=== PATIENT | female | born 1965 | race Caucasian/White ===

== ENCOUNTER 2017-11-05 12:17 | Observation (INO) | payer MEDICARE ==
[~2017-11-05] VITALS: Ht 147.3 cm; Wt 48.5 kg
[2017-11-05] MEDS ORDERED: 0.9 % SODIUM CHLORIDE 10 ML DISP.SYRIN. IV PRN (12:45)
[2017-11-05 12:57] LABS: BASO % 1 % (0-3); EOS % 0 % (0-3); HEMATOCRIT 44.6 % (36.0-47.0); LYMPH # 1.9 x10^3/uL (1.0-4.8); LYMPH % 23 % (24-48); MEAN CORPUSCULAR HEMOGLOBIN 30 pg (25-35); MEAN CORPUSCULAR HGB CONC 34 g/dL (31-37); MEAN CORPUSCULAR VOLUME 88 fL (79-100); MONO # 0.8 x10^3/uL (0.0-1.1); MONO % 10 % (0-9); NEUT # 5.5 x10^3uL (1.8-7.7); NEUT % 67 % (31-73); PLATELET COUNT 98 x10^3/uL (140-400); RED CELL DISTRIBUTION WIDTH 13.8 % (11.5-14.5); WHITE BLOOD COUNT 8.3 x10^3/uL (4.0-11.0)
[2017-11-05] MEDS ORDERED: ONDANSETRON PF 4 MG/2 ML VIAL. IV ONE (13:00)
[2017-11-05] MEDS ORDERED: IV NORMAL SALINE 1,000ML 1,000 ML IV SCH (13:00)
[2017-11-05 13:12] LABS: ALBUMIN 3.6 g/dL (3.4-5.0); ALBUMIN/GLOBULIN RATIO 1.1 (1.0-1.7); CALCIUM 8.8 mg/dL (8.5-10.1); CREATININE 1.1 mg/dL (0.6-1.0); GFR 52.2; POTASSIUM 4.2 mmol/L (3.5-5.1); TOTAL BILIRUBIN 0.4 mg/dL (0.2-1.0); TOTAL PROTEIN 6.9 g/dL (6.4-8.2)
[2017-11-05] MEDS ORDERED: IOHEXOL 240 MG/ML 50ML VIAL. ONE (14:11)
[2017-11-05] MEDS: IV NORMAL SALINE 1,000ML 1,000 ML IV SCH ×2 (14:15→21:32)
[2017-11-05] MEDS ORDERED: ONDANSETRON PF 4 MG/2 ML VIAL. IV PRN (14:15)
--- NOTE | 2017-11-05 14:27 | PHYS DOC ---
Past History Additional Past Medical Histor: chronic back pain Past Surgical History: Other Additional Past Surgical Histo: back surgery 2 Smoking: Greater than 1 pack/day Alcohol Use: None Drug Use: None Adult General Chief Complaint Chief Complaint: NAUSEA/VOMITING/DIARRHEA HPI HPI 52-year-old female patient with history of chronic back pain and Dilaudid and oxycodone obtaining of episodes of nausea and vomiting and diarrhea for the last 3 days. Patient states she had several episodes of vomiting and diarrhea 3 days ago and for the last 2 days she has frequent self she had frequent episodes of bloody diarrhea and nausea without vomiting. Patient complaining of abdominal cramping pain after eating that improves after few minutes. Patient complaining of generalized weakness and states she thinks she is dehydrated. Patient denies urinary symptoms, sick contacts, chest pain, shortness of breath , history of the same problem. She denies abdominal pain at arrival to ER. Review of Systems Review of Systems Constitutional: Denies fever or chills , reports weakness[] Eyes: Denies change in visual acuity, redness, or eye pain [] HENT: Denies nasal congestion or sore throat [] Respiratory: Denies cough or shortness of breath [] Cardiovascular: No additional information not addressed in HPI [] GI: Reports abdominal pain, nausea, vomiting, diarrhea [] : Denies dysuria or hematuria [] Musculoskeletal: Denies back pain or joint pain [] Integument: Denies rash or skin lesions [] Neurologic: Denies headache, focal weakness or sensory changes [] Endocrine: Denies polyuria or polydipsia [] All other systems were reviewed and found to be within normal limits, except as documented in this note. Current Medications Current Medications Current Medications Medications (Trade) Dose Ordered Sig/Lise Start Time Stop Time Status Last Admin Dose Admin Iohexol (Omnipaque 240 Mg/ml) 50 ml STK-MED ONCE 11/05/17 14:11 11/05/17 14:12 DC Ondansetron HCl (Zofran) 4 mg PRN Q4HRS PRN 11/05/17 14:15 11/06/17 14:14 Sodium Chloride 1,000 ml @ 150 mls/hr Q6H40M 11/05/17 14:15 11/06/17 14:14 Sodium Chloride (Normal Saline Flush) 10 ml QSHIFT PRN 11/05/17 12:45 Allergies Allergies Allergies Coded Allergies Type Severity Reaction Last Updated Verified morphine Allergy Intermediate rash 11/05/17 Yes pregabalin Allergy Intermediate sob 11/05/17 Yes topiramate Allergy Intermediate rash 11/05/17 Yes lurasidone Allergy Unknown 11/05/17 Yes Physical Exam Physical Exam Constitutional: Moderate distress, anxious, hyperventilating, non-toxic appearance. [] HENT: Normocephalic, atraumatic, bilateral external ears normal, oropharynx dry , no oral exudates, nose normal. [] Eyes: PERRLA, EOMI, conjunctiva normal, no discharge. [] Neck: Normal range of motion, no tenderness, supple, no stridor. [] Cardiovascular:Heart rate regular rhythm, no murmur [] Lungs & Thorax: Bilateral breath sounds clear to auscultation [] Abdomen: Bowel sounds normal, soft, no tenderness, no masses, no pulsatile masses. [] Skin: Warm, dry, no erythema, no rash. [] Back: No tenderness, no CVA tenderness. [] Extremities: No tenderness, no cyanosis, no clubbing, ROM intact, no edema. [] Neurologic: Alert and oriented X 3, normal motor function, normal sensory function, no focal deficits noted. [] Psychologic: Affect normal, judgement normal, mood normal. [] Current Patient Data Lab Results Laboratory Tests Test 11/05/17 12:35 White Blood Count 8.3 x10^3/uL (4.0-11.0) Red Blood Count 5.10 x10^6/uL (3.50-5.40) Hemoglobin 15.0 g/dL (12.0-15.5) Hematocrit 44.6 % (36.0-47.0) Mean Corpuscular Volume 88 fL (79-100) Mean Corpuscular Hemoglobin 30 pg (25-35) Mean Corpuscular Hemoglobin Concent 34 g/dL (31-37) Red Cell Distribution Width 13.8 % (11.5-14.5) Platelet Count 98 x10^3/uL (140-400) L Neutrophils (%) (Auto) 67 % (31-73) Lymphocytes (%) (Auto) 23 % (24-48) L Monocytes (%) (Auto) 10 % (0-9) H Eosinophils (%) (Auto) 0 % (0-3) Basophils (%) (Auto) 1 % (0-3) Neutrophils # (Auto) 5.5 x10^3uL (1.8-7.7) Lymphocytes # (Auto) 1.9 x10^3/uL (1.0-4.8) Monocytes # (Auto) 0.8 x10^3/uL (0.0-1.1) Eosinophils # (Auto) 0.0 x10^3/uL (0.0-0.7) Basophils # (Auto) 0.0 x10^3/uL (0.0-0.2) Sodium Level 137 mmol/L (136-145) Potassium Level 4.2 mmol/L (3.5-5.1) Chloride Level 101 mmol/L (98-107) Carbon Dioxide Level 25 mmol/L (21-32) Anion Gap 11 (6-14) Blood Urea Nitrogen 28 mg/dL (7-20) H Creatinine 1.1 mg/dL (0.6-1.0) H Estimated GFR (Cockcroft-Gault) 52.2 BUN/Creatinine Ratio 25 (6-20) H Glucose Level 106 mg/dL (70-99) H Calcium Level 8.8 mg/dL (8.5-10.1) Total Bilirubin 0.4 mg/dL (0.2-1.0) Aspartate Amino Transferase (AST) 111 U/L (15-37) H Alanine Aminotransferase (ALT) 146 U/L (14-59) H Alkaline Phosphatase 177 U/L (46-116) H Creatine Kinase 178 U/L (26-192) Troponin I Quantitative < 0.017 ng/mL (0-0.055) Total Protein 6.9 g/dL (6.4-8.2) Albumin 3.6 g/dL (3.4-5.0) Albumin/Globulin Ratio 1.1 (1.0-1.7) Lipase 49 U/L (73-393) L EKG EKG [] Radiology/Procedures Radiology/Procedures [] Course & Med Decision Making Course & Med Decision Making Pertinent Labs reviewed. (See chart for details) Evaluation of patient in ER showed 52-year-old male patient with episodes of nausea and vomiting and diarrhea and intermittent abdominal pain for the last 2 days. Vomiting improved but patient continued to have diarrhea. Patient had dehydration and was very anxious and hyperventilating at arrival to ER. Patient treated with IV fluid and Zofran and felt better. Labs showed elevation of BUN/ creatinine. UA is pending. She did not have leukocytosis. Plan to admit patient with diagnosis of acute dehydration. UA and CT of abdomen and pelvis is pending. Dr. Kebede was informed at 1355 and agreed with plan of admission. Dragon Disclaimer Dragon Disclaimer This electronic medical record was generated, in whole or in part, using a voice recognition dictation system. Departure Departure: Impression: Primary Impression: Dehydration Additional Impressions: Abdominal pain Elevated liver function tests Diarrhea Tobacco abuse Tobacco abuse counseling Disposition: ADMITTED INPATIENT (At 1356) Admitting Physician: Norbert Kebede Condition: IMPROVED Problem Qualifiers RICARDO ESPITIA MD Nov 05, 2017 14:27
[2017-11-05 14:31] LABS: AMPHETAMINE/METHAMPHETAMINE POS (NEG); BARBITURATES NEG (NEG); BENZODIAZEPINES NEG (NEG); CANNABINOIDS POS (NEG); COCAINE NEG (NEG); METHADONE NEG (NEG); OPIATES POS (NEG); PHENCYCLIDINE NEG (NEG)
[2017-11-05 14:37] LABS: BILIRUBIN,URINE NEG (NEG); CLARITY,URINE CLOUDY; COLOR,URINE AMBER; GLUCOSE,URINE NEG (NEG)
[2017-11-05 14:38] LABS: AMORPHOUS SEDIMENT,UR PRESENT /HPF; BACTERIA,URINE MOD /HPF (0-FEW); GRANULAR CASTS,URINE FEW /HPF; HYALINE CASTS, URINE OCC /HPF; NITRITE,URINE NEG (NEG); SQUAMOUS EPITHELIAL CELL,UR MOD /LPF; UROBILINOGEN,URINE 0.2 mg/dL (0.2 mg/dL)
[2017-11-05 15:03] VITALS: BP_SYST 107; BP_SYST 129; BP_DIAS 68
--- NOTE | 2017-11-05 16:12 | RAD ---
CT of the abdomen and pelvis without contrast, 11/05/2017: History: Abdominal pain Multidetector CT imaging was performed without IV contrast as requested. Oral contrast material was given for GI tract opacification. The unopacified liver is unremarkable. The gallbladder is surgically absent. No pancreatic abnormality is seen the spleen is of normal size. The unopacified kidneys show no abnormality. Aortic calcific plaquing is present without evidence of aneurysm. There are extensive fixation devices in the lower lumbar spine related to a previous spinal fusion. Associated artifacts degrade image quality through this region. The oral contrast material has not reached the colon. There is probable visualization of a small segment of the appendix which shows no abnormality. There is colonic mural thickening best seen in the descending colon and sigmoid. There is no evidence of bowel obstruction. No free air or significant free fluid is evident in the abdomen or pelvis. IMPRESSION: Colonic mural thickening in the descending colon and sigmoid compatible with nonspecific colitis. PQRS Compliance Statement: One or more of the following individualized dose reduction techniques were utilized for this examination: 1. Automated exposure control 2. Adjustment of the mA and/or kV according to patient size 3. Use of iterative reconstruction technique
--- NOTE | 2017-11-05 17:36 | HP ---
ADMIT DATE: 11/05/2017 HISTORY OF PRESENT ILLNESS: The patient is a 52-year-old female patient who came to the Emergency Room complaining of recurrent bouts of dry heaves, nausea, vomiting and diarrhea for the last 3 days. The episode has worsened yesterday. She had bloody diarrhea. She also complained of abdominal cramping and pain after eating that improves after a few minutes. She also complained of generalized weakness and feeling dizzy, however, the patient denied any sick contact. Denied any recent travel. Her significant other lives with her, and has not had any symptoms similar to this. PAST MEDICAL HISTORY: Unremarkable except for chronic back pain for which she is on Dilaudid and oxycodone. PAST SURGICAL HISTORY: Significant for back surgery, 2 C-sections and cholecystectomy. ALLERGIES: She is allergic to LURASIDONE, MORPHINE, PREGABALIN and TOPIRAMATE. MEDICATIONS: She is currently on following medications: She is normally on Percocet 10/325 one tablet every 6 hours and Dilaudid 3 mg 3 times a day. FAMILY HISTORY: She has one brother and one sister that are healthy. Her father has lung cancer. Mother of lung cancer. SOCIAL HISTORY: She has 5 sons from previous marriage. She lives now with her significant other. She smokes half to 1 pack per day. She does not drink any alcohol or use any drugs. She is on disability. REVIEW OF SYSTEMS: She denied any blurring of vision, cataract, glaucoma or macular degeneration. Denied any earache, tinnitus, or sensorineural deafness. Denied any nosebleeds, stuffy nose, or postnasal drip. Denied any sore throat, sore tongue, toothache, hoarseness of voice, or difficulty swallowing. Did complain of nausea and vomiting as well as diarrhea. Denied any hematemesis, melena or hematochezia. Denied any dysuria, frequency, or hematuria. Denied any chest pain. She did complain of shortness of breath. Denied any cough, phlegm, or hemoptysis. PHYSICAL EXAMINATION: GENERAL: On examining her, she was resting slightly propped up in bed, in no apparent respiratory distress, pale, cachectic, but no jaundice, cyanosis, or thyromegaly. No jugular venous distension. No limb edema. VITAL SIGNS: Her heart rate was 87, blood pressure 130/74, temperature was 97, respiratory rate was 24, and oxygen saturation 100% on room air. HEAD, EYES, EARS, NOSE AND THROAT: Normocephalic, atraumatic. NECK: Supple. HEART: Showed normal first and second heart sounds. No gallop, rub or murmur. CHEST: Clear to auscultation. No crepitation or rhonchi. ABDOMEN: Distended, soft, and nontender. No guarding or rigidity. No organomegaly. Hernial orifice intact. Bowel sounds normal. She has some tenderness mostly in the epigastric area. NEUROLOGIC: She is awake, alert, responding appropriately. Cranial nerves intact. EXTREMITIES: She moves extremities without difficulty. She ambulates without assistance or assistive devices. LABORATORY DATA: Her white cell count was 8300, hemoglobin 15, hematocrit 45, MCV 88 and platelet count of 98,000. Her chemistry showed a serum sodium 137, potassium 4.2, chloride 101, bicarbonate 25, anion gap of 11, BUN 28, creatinine 1.1, estimated GFR was 52 mL per minute. Her glucose was 105. Her calcium was 8.8. Total bilirubin normal. AST, ALT, alkaline phosphatase are elevated. Her total protein was 6.9, albumin 3.6, serum lipase was 49. Urinalysis was essentially unremarkable. Toxic screen was positive for opiates and methamphetamine, amphetamine as well as cannabinoids. ASSESSMENT: Acute gastroenteritis, ____, tobacco, amphetamine, opiate and cannabinoids abuse, and deranged liver enzyme. PLAN: My plan is to continue with IV fluid, continue with clear liquid diet if tolerated. I will arrange for her to have abdominal ultrasound tomorrow. She will be kept n.p.o. from midnight tonight and also arrange for hepatitis serology given she is abusing multiple drugs. DELL MERCER MD DR: MONSE/natasha JOB#: [id number] / [id number]
[2017-11-05 19:29] VITALS: BP 124/83
[2017-11-05] MEDS ORDERED: OXYC-328 PO (19:33)
[2017-11-05] MEDS ORDERED: HYDR4TAB45 PO (19:35)
[2017-11-05] MEDS: HYDROmorphone 2 MG TABLET PO SCH (21:31)
[2017-11-05] MEDS: oxyCODONE/APAP 10/325 1 TAB TABLET PO SCH (21:31)
[2017-11-05 23:31] VITALS: BP 106/54
[2017-11-06] MEDS ORDERED: ACETAMINOPHEN 325 MG TABLET PO PRN (04:45)
[2017-11-06] MEDS: IV NORMAL SALINE 1,000ML 1,000 ML IV SCH ×2 (05:01→10:49)
[2017-11-06 05:45] VITALS: BP 135/66
[2017-11-06 07:06] LABS: ALBUMIN 2.6 g/dL (3.4-5.0); ALBUMIN/GLOBULIN RATIO 0.9 (1.0-1.7); CALCIUM 7.8 mg/dL (8.5-10.1); CREATININE 0.7 mg/dL (0.6-1.0); GFR 87.9; POTASSIUM 3.7 mmol/L (3.5-5.1); TOTAL BILIRUBIN 0.2 mg/dL (0.2-1.0); TOTAL PROTEIN 5.6 g/dL (6.4-8.2)
[2017-11-06 07:10] LABS: HEMATOCRIT 39.1 % (36.0-47.0); RED BLOOD COUNT 4.38 x10^6/uL (3.50-5.40); RED CELL DISTRIBUTION WIDTH 13.9 % (11.5-14.5); WHITE BLOOD COUNT 7.2 x10^3/uL (4.0-11.0)
[2017-11-06] MEDS: oxyCODONE/APAP 10/325 1 TAB TABLET PO SCH (08:52)
[2017-11-06] MEDS: HYDROmorphone 2 MG TABLET PO SCH (08:52)
[2017-11-06] MEDS ORDERED: PNEUMOC CONJ VACC 23-VALENT 0.5 ML VIAL. VAX IM ONE (09:00)
[2017-11-06] MEDS ORDERED: FLU VACC QS2017-18 (36MOS+)/PF 0.5 ML SYRINGE. VAX IM ONE (09:00)
--- NOTE | 2017-11-06 09:17 | RAD ---
Ultrasound abdomen complete 11/06/2017. Comparison: CT abdomen and pelvis 11/05/2017. Findings: Visualized pancreas unremarkable. Visualized abdominal aorta and upper IVC unremarkable. Liver is of adjacent echotexture without suspicious focal mass or fluid collection in the visualized portions. No intra or extrahepatic biliary ductal dilatation. The common bile duct measures 0.4 cm. The right kidney measures 10.87 m in length without collection system dilatation. The spleen is normal in size measuring 9.8 cm in length. The left kidney measures 10.9 cm in length without collecting system dilatation. Trace amount of free fluid at Morison's pouch. Impression: 1. Trace right abdominal free fluid. 2. Otherwise unremarkable abdominal sonogram.
[2017-11-06 11:30] VITALS: BP 134/72
[2017-11-06 22:13] LABS: HCV ANTIBODY 3.3 s/co ratio (0.0-0.9); HEP A IGM ABDY Negative (Negative)
== END 2017-11-06 14:20 | disposition home or self-care (01) ==
LOC: ER 12:17 → 1 SOUTH 14:10
PROVIDERS: ADMIT Internal Medicine; ATTEND Internal Medicine
DX: K52.9 Noninfective gastroenteritis and colitis, unspecified (principal); F17.210 Nicotine dependence, cigarettes, uncomplicated; E86.0 Dehydration; Z80.1 Family history of malignant neoplasm of trachea, bronchus and lung
CPT/HCPCS: 36415; 74176; 76700; 80053; 80074; 80307; 81001; 82550; 83690; 84484; 85025; 85027; 85610; 87086; 90471; 90472; 90686; 90732; 96361; 96374; 99285; G0378; J2405; 87186; G0379; G0479; J7030